=== PATIENT | male | born 1995 | race Caucasian/White ===

== ENCOUNTER 2017-08-19 08:04 | Emergency (ER) | payer OTHER ==
[~2017-08-19 08:04] MED LIST: Amoxicillin/Clavulanate K 875-125 MG Tab ONE
[2017-08-19] MEDS ORDERED: Diphtheria,Pertussis(Acell),Tetanus Vaccine 0.5 ML SDV inactive IM ONE (08:14)
--- NOTE | 2017-08-19 09:10 | EDM.PDOC ---
ED HPI GENERAL MEDICAL PROBLEM - General Chief Complaint: Laceration Stated Complaint: finger laceration Time Seen by Provider: 08/19/17 08:30 Source of Information: Reports: Patient History Limitations: Reports: No Limitations - History of Present Illness INITIAL COMMENTS - FREE TEXT/NARRATIVE: This is a 21yo Diabetic here for a laceration of the right index fignertip. Patient was sharpening his knife and cut the tip of his finger. He denies an up to date tetanus. Patient denies any allergies to medications. No further concerns today. Patient had wrapped his finger and come to the ER. He works at [employer]. Onset: Sudden Duration: Hour(s): Location: Reports: Upper Extremity, Right Severity: Mild Improves with: Reports: None Worsens with: Reports: None - Related Data Allergies Allergy/AdvReac Type Severity Reaction Status Date / Time No Known Allergies Allergy Verified 08/19/17 08:10 Home Meds: Home Meds Insulin Lispro [HumaLOG] 100 unit SUBCUT QIDACANDBED 08/19/17 [History] Past Medical History Endocrine/Metabolic History: Reports: Diabetes, Type I - Past Surgical History HEENT Surgical History: Reports: Tonsillectomy ED ROS GENERAL - Review of Systems Review Of Systems: ROS reveals no pertinent complaints other than HPI. ED EXAM, SKIN/RASH Exam: See Below Exam Limited By: No Limitations General Appearance: Alert, WD/WN, No Apparent Distress Ears: Normal External Exam Nose: Normal Inspection Throat/Mouth: Normal Inspection Head: Atraumatic, Normocephalic Neck: Normal Inspection Respiratory/Chest: No Respiratory Distress Cardiovascular: Normal Peripheral Pulses Peripheral Pulses: 2+: Dorsalis Pedis (L), Dorsalis Pedis (R) GI/Abdominal: Normal Bowel Sounds Back Exam: Normal Inspection Extremities: Other (right distal index fingertip laceration 1.5cm) Neurological: Alert, Oriented Skin: Warm, Dry Location, Skin: Upper Extremity, Right Characteristics: Linear ED SKIN PROCEDURES - Laceration/Wound Repair Right Midline Distal Finger Lac/Wound length In cm: 1.5 Appearance: Subcutaneous Distal NVT: Other (lateral flap of skin had lack of sensation) Anesthetic Type: Local Local Anesthesia - Lidocaine (Xylocaine): 2% Plain Local Anesthetic Volume: 2cc Skin Prep: Providone-Iodine (Betadine), Saline, Sterile Drape Exploration/Debridement/Repair: Wound Explored Closed with: Sutures Suture Size: other (5-0) Suture Type: Simple, Other (ethilon) Tetanus Status Addressed: Yes Complications: No Course - Orders/Labs/Meds Orders: Active Orders 24 hr Category Date Time Status Vaccines to be Administered [RC] PER UNIT ROUTINE Care 08/19/17 08:14 Active Meds: Medications Discontinued Medications Generic Name Dose Route Start Last Admin Trade Name Michael PRN Reason Stop Dose Admin Diphtheria/Tetanus/Acell Pertussis 0.5 ml 08/19/17 08:14 08/19/17 08:16 Boostrix IM 08/19/17 08:15 0.5 ml .ONCE ONE Administration Departure - Departure Time of Disposition: 09:10 Disposition: Home, Self-Care 01 Condition: Good Clinical Impression: Laceration - Discharge Information Instructions: Laceration Care, Adult, [id number] Forms: ED Department Discharge Additional Instructions: Have sutures removed in 7 to 10 days. Take augmentin 1 tablet twice a day for 10 days. Come in to be re-evaluated if laceration develops signs of infection such as pussy drainage, warmth, or redness, fever or chills. - My Orders Last 24 Hours: My Active Orders 08/19/17 08:14 Vaccines to be Administered [RC] PER UNIT ROUTINE - Assessment/Plan Last 24 Hours: My Active Orders 08/19/17 08:14 Vaccines to be Administered [RC] PER UNIT ROUTINE
[2017-08-19 12:59] VITALS: BP 138/87
== END 2017-08-19 08:55 | disposition home or self-care (01) ==
LOC: LB.ED 08:04
DX: S61.210A Laceration without foreign body of right index finger without damage to nail, initial encounter (principal); Z23 Encounter for immunization; E10.9 Type 1 diabetes mellitus without complications; W26.0XXA Contact with knife, initial encounter
CPT/HCPCS: 12001; 90471; 90715; 99283; A9270

== ENCOUNTER 2018-04-09 09:26 | Emergency (ER) | payer OTHER ==
--- NOTE | 2018-04-09 11:59 | EDM.PDOC ---
ED HPI GENERAL MEDICAL PROBLEM - General Chief Complaint: General Stated Complaint: KNEE PAIN Time Seen by Provider: 04/09/18 09:30 Source of Information: Reports: Patient History Limitations: Reports: No Limitations - History of Present Illness INITIAL COMMENTS - FREE TEXT/NARRATIVE: This is a 22yo M who fell a week ago with current complaints of continue left knee pain and weakness and right shoulder discomfort. He states his left knee feels that it could give away and he has difficulty walking on it without pain. The symptoms have been present for the past week without improvement. Duration: Week(s): Location: Reports: Upper Extremity, Right, Lower Extremity, Left Quality: Reports: Ache Severity: Moderate Improves with: Reports: None Worsens with: Reports: Movement Context: Reports: Activity Associated Symptoms: Reports: No Other Symptoms Left Knee Pain Score (Numeric/FACES): 10 - Related Data Allergies Allergy/AdvReac Type Severity Reaction Status Date / Time No Known Allergies Allergy Verified 08/19/17 08:10 Home Meds: Home Meds Insulin Aspart [NovoLOG] 12 units SUBCUT QID 04/09/18 [History] Insulin Glargine,Hum.Rec.Anlog [Basaglar Kwikpen U-100] 20 units SQ BID [History] Past Medical History Endocrine/Metabolic History: Reports: Diabetes, Type I - Past Surgical History HEENT Surgical History: Reports: Tonsillectomy ED ROS GENERAL - Review of Systems Review Of Systems: ROS reveals no pertinent complaints other than HPI. ED EXAM, GENERAL - Physical Exam Exam: See Below Exam Limited By: No Limitations General Appearance: Alert, No Apparent Distress Eye Exam: Bilateral Eye: EOMI Ears: Normal External Exam Nose: Normal Inspection Throat/Mouth: Normal Inspection Head: Atraumatic, Normocephalic Neck: Normal Inspection, Supple, Non-Tender, Full Range of Motion Respiratory/Chest: No Respiratory Distress, Lungs Clear, Normal Breath Sounds Cardiovascular: Normal Peripheral Pulses, Regular Rate, Rhythm Peripheral Pulses: 2+: Dorsalis Pedis (L), Dorsalis Pedis (R) GI/Abdominal: Normal Bowel Sounds, Soft, Non-Tender Back Exam: Normal Inspection Extremities: Normal Inspection, Other (left knee swelling and tenderness on vagus stress, tender to palpation of the patella and lateral collateral ligaments) Neurological: Alert, Oriented, CN II-XII Intact Psychiatric: Normal Affect, Normal Mood Departure - Departure Time of Disposition: 10:15 Disposition: Home, Self-Care 01 Condition: Undetermined Clinical Impression: Left knee injury Qualifiers: Encounter type: initial encounter Qualified Code(s): S89.92XA - Unspecified injury of left lower leg, initial encounter Right shoulder pain Qualifiers: Chronicity: acute Qualified Code(s): M25.511 - Pain in right shoulder - Discharge Information Instructions: Knee Pain, Adult Referrals: PCP,None [Primary Care Provider] - Forms: ED Department Discharge Additional Instructions: Counseled on negative x-rays and supportive care and management. Discussed further workup would be PT/OT, referral to Orthopedics and an MRI. Patient agrees with an MRI initially and further management depending on the results. Schedule MRI as instructed for tomorrow or when truck comes. Take NSAIDS for pain as needed.
--- NOTE | 2018-04-09 14:48 | CR ---
DATE OF SERVICE: 04/09/18 CLINICAL DATA: pain RIGHT SHOULDER: Normal. [id number] MTDD
--- NOTE | 2018-04-09 14:50 | CR ---
DATE OF SERVICE: 04/09/18 CLINICAL DATA: pain LEFT KNEE: Normal. [id number] MTDD
== END 2018-04-09 10:18 | disposition home or self-care (01) ==
LOC: LB.ED 09:26
DX: S89.92XA Unspecified injury of left lower leg, initial encounter (principal); M25.511 Pain in right shoulder; E10.9 Type 1 diabetes mellitus without complications; X58.XXXA Exposure to other specified factors, initial encounter
CPT/HCPCS: 73030-RT; 73562-LT; 99283